=== PATIENT | male | born 1990 | race Caucasian/White ===

== ENCOUNTER 2017-08-09 21:56 | Emergency (ER) | payer BC ==
[~2017-08-09] VITALS: Ht 180.3 cm; Wt 79.4 kg
[2017-08-09 22:15] VITALS: BP 138/82
== END 2017-08-09 22:35 | disposition home or self-care (01) ==
LOC: ER 21:56
DX: S39.012A Strain of muscle, fascia and tendon of lower back, initial encounter (principal); S19.80XA Other specified injuries of unspecified part of neck, initial encounter; Z88.5 Allergy status to narcotic agent; V49.49XA Driver injured in collision with other motor vehicles in traffic accident, initial encounter; Y93.89 Activity, other specified; Y92.413 State road as the place of occurrence of the external cause; Y99.8 Other external cause status
CPT/HCPCS: A4606; J7040; Z7610